=== PATIENT | male | born 1995 | race African-American/Black ===

== ENCOUNTER 2016-09-16 13:54 | Emergency (ER) | payer OTHER ==
[~2016-09-16] VITALS: Ht 182.9 cm; Wt 148.1 kg
[~2016-09-16 13:54] MED LIST: AMBIEN10 MG; AMITRIPTYLINE H25 MG PO; DIVALPROEX SOD250 M1 PO; FLUOXETINE HCL20 MG PO; INVEGA; PSYCH TP; RISPERDAL3 MG PO; STRATTERA100 MG; ZOLOFT100 MG PO; ZOLOFT50 MG PO
[2016-09-16] MEDS ORDERED: NAPROXEN500 MG PO (15:47)
[2016-09-16 16:00] VITALS: BP 118/78
== END 2016-09-16 16:01 | disposition home or self-care (01) ==
LOC: EME 13:54 → RME 13:54
DX: M25.561 Pain in right knee (principal); W22.09XA Striking against other stationary object, initial encounter; Y93.72 Activity, wrestling
CPT/HCPCS: 73564; 99281; 99283